=== PATIENT | male | born 1945 | race Caucasian/White ===

== ENCOUNTER 2022-11-25 14:08 | Emergency (ER) | payer MEDICARE, BC ==
[~2022-11-25] VITALS: Ht 170.2 cm; Wt 74.8 kg
[2022-11-25] MEDS ORDERED: ZPAK PO (15:55)
[2022-11-25] MEDS ORDERED: AMOX/K CLAV875 M1 PO (15:55)
[2022-11-25 16:08] VITALS: BP 139/84
== END 2022-11-25 16:24 | disposition home or self-care (01) ==
LOC: ED 14:08
DX: S20.211A Contusion of right front wall of thorax, initial encounter (principal); I10 Essential (primary) hypertension; W01.0XXA Fall on same level from slipping, tripping and stumbling without subsequent striking against object, initial encounter; Y92.009 Unspecified place in unspecified non-institutional (private) residence as the place of occurrence of the external cause

== ENCOUNTER 2023-02-25 09:52 | Emergency (ER) | payer MEDICARE, BC ==
[~2023-02-25] VITALS: Ht 170.2 cm; Wt 77.0 kg
[2023-02-25] VITALS (7 sets, daily range): BP systolic 108–141; BP diastolic 63–82
[~2023-02-25 09:52] MED LIST: AMOX/K CLAV875 M1 PO; ZPAK PO
== END 2023-02-25 12:18 | disposition home or self-care (01) ==
LOC: ED 09:52
DX: S51.811A Laceration without foreign body of right forearm, initial encounter (principal); I10 Essential (primary) hypertension; W22.8XXA Striking against or struck by other objects, initial encounter

== ENCOUNTER 2024-02-09 10:34 | Observation (INO) | payer MEDICARE, BC ==
[~2024-02-09] VITALS: Ht 172.7 cm; Wt 81.2 kg
[~2024-02-09 10:34] MED LIST changes: +ACTEMRA162 MG/0.9 SC; +ATORVASTATIN CA40 MG PO; +BAYER ASPIRIN E81 MG PO; +CIALIS5 MG PO; +CLONAZEPAM1 MG PO; +FISH OIL1400 MG PO; +MELATONIN10 M1 PO; +OLIVE OIL OT; +PLAVIX75 MG PO; +PREDNISONE10 MG PO; +PROTONIX40 M2 PO; +TESTOSTERO TOP; +VENTOLIN HFA108 MCG IN; +VITAMIN C500 M4 PO; +VITAMIN D35000 UNIT PO; +VOLTAREN3% GEL TOP; +[UNRECOGNIZED DRUG - OTHER] PO; +[UNRECOGNIZED DRUG - OTHER] TOP
--- NOTE | 2024-02-09 10:40 | NUR ---
pt arrives at this time with severe dizziness that began this morning. pt wasa brought back in wheelchair. Stroke allert is being called due to dizziness nausea vomitng and hx of tis. pt is aox4. vitals stable st this time
[2024-02-09] MEDS ORDERED: ONDANSETRON HCl 4 MG/2 ML SDV IV ONE (10:55)
[2024-02-09 11:16] LABS: BASO% 0.1 % (0-3); EOS% 0.1 % (0-8); HEMATOCRIT 42.1 % (39.0-50.0); IMMATURE GRANULOCYTES 0.2 % (0.0-5.0); LYMPH% 26.2 % (15-41); MEAN CELL VOLUME 103.2 fL CALC (80.0-100.0); MEAN CORPUSCULAR HGB 34.3 pG CALC (26.0-32.0); MEAN CORPUSCULAR HGB CONC 33.3 g/dL CAL (32.0-36.0); MONO% 6.7 % (2-13); NEUT# 5.4 thou/uL (1.82-7.42); NEUT% 66.7 % (42-76); RED BLOOD COUNT 4.08 mill/uL (4.70-6.10); RED CELL DISTRI WIDTH 12.7 % (11.5-15.5)
[2024-02-09 11:33] VITALS: BP 109/56
[2024-02-09 11:39] LABS: INTERNATIONAL NORMALIZED RATIO 1.1 RATIO (0.7-1.3)
[2024-02-09 11:40] LABS: ALBUMIN 4.7 g/dL (3.2-5.0); ALKALINE PHOSPHATASE 66 u/l (38-126); ANION GAP 11 (6-22 (CALC)); BILIRUBIN, TOTAL 0.6 mg/dL (0.2-1.3); BUN 34 mg/dL (8-23); BUN/CREATININE RATIO 27 (12-20 (CALC)); CALCULATED LDLCHOLESTEROL 82 mg/dL (62-129 (CALC)); CARBON DIOXIDE 28 mmol/l (22-30); CHLORIDE 104 mmol/l (95-108); CHOLESTEROL HDL RATIO 2.4 (<4.4 (CALC)); CREATININE 1.3 mg/dL (0.7-1.3); ESTIMATED GFR 56 ML/MIN (>=90 (CALC)); HDL CHOLESTEROL 67 mg/dL (39.0-59.0); POTASSIUM 4.4 mmol/l (3.5-5.1); PROTHROMBIN TIME 10.3 SECONDS (9.0-12.5); SGOT/AST 27 u/l (19-48); SODIUM 138 mmol/l (137-146); TOTAL CHOLESTEROL 159 mg/dl (0-199); TOTAL PROTEIN 7.4 g/dL (6.3-8.2); TOTAL TRIGLYCERIDES 54 mg/dl (0-149); VLDL CHOLESTROL 11 mg/dl (0-38 (CALC))
[2024-02-09] MEDS ORDERED: ASPIRIN 81 MG/TAB PO ONE (11:45)
--- NOTE | 2024-02-09 11:51 | NUR ---
pt arrives back from ct at this time pt is stable vitals wnl. pt is requesting nausea medication. pt has call [facility] in reach provider was notified
[2024-02-09 12:31] VITALS: BP 115/67
[2024-02-09 13:00] VITALS: BP 134/65
--- NOTE | 2024-02-09 13:12 | NUR ---
pt is in room awaiting results and understands he will be admitted. pt has call light in reach vitals are wnl pt has no needs at this time. pt given warm blanket
[2024-02-09] MEDS ORDERED: MAGNESIUM HYDROXIDE 30 ML UDC PO PRN (13:35)
[2024-02-09] MEDS ORDERED: DEXTROSE 250 ML IV PRN (13:35)
[2024-02-09] MEDS ORDERED: ACETAMINOPHEN 325 MG/TAB PO PRN (13:35)
--- NOTE | 2024-02-09 14:42 | NUR ---
pt is in room resting pt is aox4, vitals wnl pt states he has no complaints at this time. pt has call light in reach and pt was updated on bed status goign upstairs.
[2024-02-09] MEDS ORDERED: CLOPIDOGREL BISULFATE 75 MG/TAB TAB PO SCH (15:00)
--- NOTE | 2024-02-09 15:27 | NUR ---
PT DOES NOT HAVE MEDICATION LIST; PHONE CALL PLACED TO OFFICE TO OBTAIN COPY PER PT REQUEST.
[2024-02-09] MEDS ORDERED: MECLIZINE HCL 25 MG/TAB PO PRN (15:35)
[2024-02-09] MEDS ORDERED: ONDANSETRON HCl 4 MG/2 ML SDV IV PRN (15:35)
[2024-02-09] MEDS ORDERED: MULT VITAMIN PO (16:05)
[2024-02-09] MEDS ORDERED: FOLIC ACID1 MG PO (16:05)
--- NOTE | 2024-02-09 16:29 | NUR ---
REPORT GIVEN TO NIMISHA. NURSE ON MEDSURGE.
[2024-02-09 17:11] VITALS: BP 142/60
--- NOTE | 2024-02-09 19:00 | NUR ---
SHIFT CHANGE REPORT RECEIVED. PT RESTING NO DISTRESS NOTED ON EXAM. IV FLUSHED WORKING PROPERLY. PT STATED STILL HAVING SOME DIZZINESS. INFORM PT OF IMPORTANCE OF USING HIS CALL LIGHT BEFORE GETTING OUT OF BED PT STATED UNDERSTANDING OT PREVENT FALL AND INJURY. PT HAS NO SKING ISSUES EXCEPT SCATTERED BRUISING DUE TO PLAVIX USE. NO PAIN REPORTED. CALL LIGHT WITHIN REACH. PLAN OF CARE ONGOING.
[2024-02-09] MEDS ORDERED: DiphenhydrAMINE HCL 25 MG CPLT PO PRN (19:40)
[2024-02-09 19:42] VITALS: BP 109/49
--- NOTE | 2024-02-09 20:00 | NUR ---
MRI QUESTIONAIRE DONE. ASSESSMENT DONE. PT PROVIDED WITH EVENING MEDICATIONS. CALL LIGHT WITHIN REACH. PLAN OF CARE ONGOING.
[2024-02-09] MEDS ORDERED: ENOXAPARIN SODIUM 40 MG/0.4 ML SYR SC SCH (21:00)
[2024-02-09 23:26] VITALS: BP 117/54
--- NOTE | 2024-02-10 | NUR ---
PT RESTING NO DISTRESS NOTED ON EXAM. CALL LIGHT WITHIN REACH. PLAN OF CARE ONGOING.
[2024-02-10 03:31] VITALS: BP 109/49
--- NOTE | 2024-02-10 04:00 | NUR ---
PT RESTING NO DISTRESS NOTED ON EXAM. PT STATED THAT HIS HEAD FELT OFF POSSIBLELY THE START OF A HEADACHE DUE TO NOT EATING PROPERLY. NURSE PROVIDED MULTIPLE SNACKS. CALL LIGHT WITHIN REACH. PLAN OF CARE ONGOING.
--- NOTE | 2024-02-10 05:24 | NUR ---
PT INFORM NURSE THAT WHEN LOOKING AT THE CLOCK ON THE WALL HE NOTICE IT SPINING AROUND AND HIS HEAD FELT OFF LIKE THE START OF A HEADACHE DUE TO DISSINESS. AGAIN PT STATED THAT IT WAS POSSIBLE DUE TO HIM NO EATING ALL DAY YESTERDAY BUT THEN NURSE REMEMBER THAT DAY NURSE DURING SHIFT CHANGE STATED THAT HE RECEIVED TWO DINNER PLATES. PT WAS INFORM OF THIS WHICH AGITATED HIM SLIGHTLY THEN HE PROCEEDED TO SAY THAT MAYBE IT WAS LACK OF DRINKING ENOUGH WATER. NURSE SHOWED PT THAT HE WAS ALMOST DONE WITH THE PITCHER OF WATER ON HIS SIDE TABLE AND OFFER HIM MORE WATER. NURSE THEN PROVIDED HIM WITH PRN BENADRYL WHICH WAS ORDER FOR HIS DISSINESS.
--- NOTE | 2024-02-10 06:00 | NUR ---
PT ASKED NURSE IF DR VEGA DID EAR CLEANING SINCE PT THINKS HIS DIZZINESS MIGHT HAVE SOMETHING TO DO WITH HIS EARS NEEDING CLEANING. NURSE INFORM PT THAT SHE DID NOT KNOW BUT THAT SHE WOULD PASS THE INFORMATION TO THE DAY TO NURSE AND ASK THE PT TO RELATE THIS INFORMATION TO THE MD WHEN DOING THEIR ROUNDS.
[2024-02-10 07:23] VITALS: BP 103/45
[2024-02-10 08:29] LABS: ALBUMIN 3.9 g/dL (3.2-5.0); BILIRUBIN, TOTAL 0.4 mg/dL (0.2-1.3); CREATININE 1.1 mg/dL (0.7-1.3); MAGNESIUM 2.3 mg/dL (1.6-2.3); POTASSIUM 3.8 mmol/l (3.5-5.1); TOTAL PROTEIN 6.3 g/dL (6.3-8.2)
[2024-02-10 08:33] LABS: BASO% 0.4 % (0-3); EOS% 3.5 % (0-8); HEMATOCRIT 36.8 % (39.0-50.0); HEMOGLOBIN 12.6 g/dl (14.0-18.0); IMMATURE GRANULOCYTES 0.2 % (0.0-5.0); LYMPH% 40.5 % (15-41); MEAN CELL VOLUME 103.4 fL CALC (80.0-100.0); MEAN CORPUSCULAR HGB 35.4 pG CALC (26.0-32.0); MEAN CORPUSCULAR HGB CONC 34.2 g/dL CAL (32.0-36.0); MONO% 12.4 % (2-13); NEUT# 2.19 thou/uL (1.82-7.42); RED BLOOD COUNT 3.56 mill/uL (4.70-6.10)
[2024-02-10] MEDS ORDERED: ASPIRIN EC 81 MG/TAB PO SCH (09:00)
[2024-02-10] MEDS ORDERED: predniSONE 20 MG/TAB PO SCH (10:00)
[2024-02-10 11:10] VITALS: BP 110/40
[2024-02-10 14:57] VITALS: BP 112/62
[2024-02-10 18:27] VITALS: BP 116/66
[2024-02-10 19:06] VITALS: BP 116/66
--- NOTE | 2024-02-10 20:00 | NUR ---
PT RESTING NO DISTRESS NOTED ON EXAM. PT PROVIDED WITH SNACKS AND ORAL FLUIDS. NO PAIN REPORTED AT THIS TIME. CALL LIGHT WITHIN REACH. PLAN OF CARE ONGOING.
--- NOTE | 2024-02-10 23:22 | NUR ---
PT RESTING NO DISTRESS NOTED ON ASSESSMENT. PT REPORTS FEELING BETTER NO DIZZINESS. VS WNL ON RA. SKIN HAS SCATTERED BRUISING. SNACKS PROVIDED. CALL LIGHT WITHIN REACH. PLAN OF CARE ONGOING.
[2024-02-11 00:01] VITALS: BP 115/64
[2024-02-11 00:18] VITALS: BP 115/64
--- NOTE | 2024-02-11 04:00 | NUR ---
PT SLEEPING BREATHING EVEN NO DISTRESS NOTED ON EXAM. CALL LIGHT WITHIN REACH. PLAN OF CARE ONGOING.
[2024-02-11 04:33] VITALS: BP 110/68
[2024-02-11 05:33] LABS: BASO% 0.1 % (0-3); EOS% 0.2 % (0-8); HEMATOCRIT 36.9 % (39.0-50.0); HEMOGLOBIN 12.5 g/dl (14.0-18.0); IMMATURE GRANULOCYTES 0.2 % (0.0-5.0); LYMPH% 25.4 % (15-41); MEAN CELL VOLUME 103.4 fL CALC (80.0-100.0); MEAN CORPUSCULAR HGB CONC 33.9 g/dL CAL (32.0-36.0); MONO% 9.9 % (2-13); NEUT# 5.54 thou/uL (1.82-7.42); NEUT% 64.2 % (42-76); RED BLOOD COUNT 3.57 mill/uL (4.70-6.10)
[2024-02-11 05:37] LABS: ALBUMIN 3.8 g/dL (3.2-5.0); BILIRUBIN, TOTAL 0.4 mg/dL (0.2-1.3); CREATININE 1.1 mg/dL (0.7-1.3); POTASSIUM 4.1 mmol/l (3.5-5.1); TOTAL PROTEIN 6.2 g/dL (6.3-8.2)
[2024-02-11 06:58] VITALS: BP 112/50
--- NOTE | 2024-02-11 07:52 | NUR ---
PATIENT SITTING UP ON THE SIDE THE BED FOR BREAKFAST. ALERT AND ORIENTED X 4. DENIES PAIN, BUT IS C/O DIZZINESS. STATES HE HAS A BALANCE ISSUE AND A H/O VERTIGO APPROXIMATELY 7 YEARS AGO, BUT DIZZINESS JUST STARTED AGAIN THIS MORNING. WILL INFORM PROVIDER. LUNGS CLEAR TO ASCULTATION. BREATHING EVEN AND UNLABORED ON ROOM AIR. STRONG PERIPHERAL PULSES. 20 RAC FLUSHES WELL. SAFETY MEASURES IN PLACE INCLUDING BED IN LOW POSITION AND CALL LIGHT RESTING NEXT TO R LEG. NO APPARENT DISTRESS NOTED. WILL CONTINUE WITH PLAN OF CARE. PATIENT DECLINED HOSPITAL ISSUED NONSLIP SOCKS.
--- NOTE | 2024-02-11 11:30 | NUR ---
Discharge instructions given. Patient verbalizes understanding of same. Discharged in stable condition via Wheelchair to Home with family. All belongings sent with pt.
== END 2024-02-11 11:30 | disposition home or self-care (01) ==
LOC: ED 10:34 → ED-I 11:43 → ED 11:43 → MS2 14:20 → ED 14:20 → MS2 02-11 11:30
PROVIDERS: Family Medicine; Nurse Practitioner Family; ADMIT Internal Medicine; ATTEND Internal Medicine
DX: R42 Dizziness and giddiness (principal); I10 Essential (primary) hypertension; E78.5 Hyperlipidemia, unspecified; M06.9 Rheumatoid arthritis, unspecified; I25.10 Atherosclerotic heart disease of native coronary artery without angina pectoris; I25.2 Old myocardial infarction; Z95.5 Presence of coronary angioplasty implant and graft; Z79.82 Long term (current) use of aspirin; Z86.73 Personal history of transient ischemic attack (TIA), and cerebral infarction without residual deficits; Z79.02 Long term (current) use of antithrombotics/antiplatelets
CPT/HCPCS: J1650; Q9967

== ENCOUNTER 2024-08-27 13:21 | Emergency (ER) | payer MEDICARE, BC ==
[~2024-08-27] VITALS: Ht 172.7 cm; Wt 83.9 kg
[~2024-08-27 13:21] MED LIST changes: +FOLIC ACID1 MG PO; +MULT VITAMIN PO
[2024-08-27 13:30] VITALS: BP 153/84
[2024-08-27] MEDS ORDERED: ASPIRIN 81 MG/TAB PO ONE (13:35)
[2024-08-27 14:10] LABS: BASO% 0.6 % (0-3); EOS% 4.9 % (0-8); HEMATOCRIT 36.8 % (39.0-50.0); HEMOGLOBIN 12.2 g/dl (14.0-18.0); IMMATURE GRANULOCYTES 0.2 % (0.0-5.0); LYMPH% 44.1 % (15-41); MEAN CELL VOLUME 103.1 fL CALC (80.0-100.0); MEAN CORPUSCULAR HGB 34.2 pG CALC (26.0-32.0); MEAN CORPUSCULAR HGB CONC 33.2 g/dL CAL (32.0-36.0); MONO% 8.3 % (2-13); NEUT# 2.07 thou/uL (1.82-7.42); NEUT% 41.9 % (42-76); RED BLOOD COUNT 3.57 mill/uL (4.70-6.10); RED CELL DISTRI WIDTH 13.2 % (11.5-15.5)
[2024-08-27 14:28] LABS: ALKALINE PHOSPHATASE 54 u/l (38-126); ANION GAP 11 (6-22 (CALC)); BUN 24 mg/dL (8-23); BUN/CREATININE RATIO 20 (12-20 (CALC)); CARBON DIOXIDE 25 mmol/l (22-30); CHLORIDE 103 mmol/l (95-108); CREATININE 1.2 mg/dL (0.7-1.3); ESTIMATED GFR 62 ML/MIN (>=90 (CALC)); LIPASE 108 u/l (23-300); POTASSIUM 3.8 mmol/l (3.5-5.1); SODIUM 135 mmol/l (137-146); TOTAL PROTEIN 6.8 g/dL (6.3-8.2)
[2024-08-27 14:36] LABS: BILIRUBIN, TOTAL 0.7 mg/dL (0.2-1.3); SGOT/AST 34 u/l (19-48)
[2024-08-27 14:40] VITALS: BP 155/76
[2024-08-27] MEDS ORDERED: METHOTREXATE2.5 MG PO (15:28)
[2024-08-27 17:20] VITALS: BP 155/76
== END 2024-08-27 17:30 | disposition left against medical advice (07) ==
LOC: ED 13:21
PROVIDERS: Nurse Practitioner
DX: R07.9 Chest pain, unspecified (principal); I25.10 Atherosclerotic heart disease of native coronary artery without angina pectoris; I10 Essential (primary) hypertension; I25.2 Old myocardial infarction; Z95.5 Presence of coronary angioplasty implant and graft; Z86.73 Personal history of transient ischemic attack (TIA), and cerebral infarction without residual deficits; Z53.29 Procedure and treatment not carried out because of patient's decision for other reasons